=== PATIENT | male | born 1995 | race African-American/Black ===

== ENCOUNTER 2017-10-01 21:25 | Emergency (ER) | payer MEDICAID ==
[~2017-10-01] VITALS: Ht 182.9 cm; Wt 65.8 kg
[2017-10-01] MEDS ORDERED: NKM (21:52)
[2017-10-01] MEDS ORDERED: AUGMENTIN 875-1 EAC1 ORAL (22:32)
--- NOTE | 2017-10-01 22:33 | Emergency Room Report ---
History of Present Illness General Chief Complaint: Puncture Wound Source: Patient Present Illness [facility] This is a 22-year-old male with no cerumen past medical history. He presents with a puncture wound to his right foot. This occurred at work 4 days ago. He stepped on a palate that has a nail on it. It went through the sole of his shoe into his foot. He pulled it out. Since then his been doing fine except for the pain when he walk on it. No fever chills but no redness. Denies any other complaint. Allergies: Coded Allergies: No Known Allergies (Unverified , 10/01/17) Patient History Past Medical History: see triage record, old chart reviewed Past Surgical History: none Pertinent Family History: none Social History: Denies: smoking Immunizations: other Reviewed Nursing Documentation: PMH: Agreed; PSxH: Agreed Nursing Documentation-PMH Past Medical History: No Stated History Review of Systems Eye: Denies: eye pain, blurred vision ENT: Denies: ear pain, nose congestion, throat swelling Respiratory: Denies: cough, shortness of breath Cardiovascular: Denies: chest pain, palpitations Gastrointestinal: Denies: abdominal pain, diarrhea, nausea, vomiting Musculoskeletal: Reports: muscle pain; Denies: back pain, joint pain Skin: Denies: rash Neurological: Denies: headache, numbness Endocrine: Denies: increased thirst, increased urine Hematologic/Lymphatic: Denies: easy bruising All Other Systems: negative except mentioned in HPI Physical Exam Vital Signs Date Time Temp Pulse Resp B/P (MAP) Pulse Ox O2 Delivery O2 Flow Rate FiO2 10/01/17 21:47 98.3 76 16 98/57 98 Room Air 98.2 vitals normal Sp02 EP Interpretation: reviewed, normal General Appearance: well appearing, no apparent distress, alert Head: normocephalic, atraumatic Eyes: bilateral eye PERRL, bilateral eye EOMI ENT: hearing grossly normal, normal pharynx Neck: full range of motion, supple, no meningismus Respiratory: chest non-tender, lungs clear, normal breath sounds Cardiovascular #1: regular rate, rhythm, no murmur Gastrointestinal: normal bowel sounds, non tender, no mass, no organomegaly, no bruit, non-distended Musculoskeletal: back normal, gait/station normal, normal range of motion, other - Right foot: On the sole of foot over the ball, there is a small puncture wound. No redness. Mild tender to palpation. No palpable foreign body. Psychiatric: mood/affect normal Skin: warm/dry Medical Decision Making Diagnostic Impression: Primary Impression: Puncture wound ER Course Patient with a puncture wound to the foot. No evidence of foreign body. Is not look infected. We'll discharge home. Other X-Ray Diagnostic Results Other X-Ray Diagnostic Results : X-Ray ordered: right foot # of Views/Limited Vs Complete: 2 View Indication: Pain EP Interpretation: Yes Interpretation: no dislocation, no soft tissue swelling, no fractures Impression: No acute disease Electronically Signed by: Adria Peng MD Last Vital Signs Date Time Temp Pulse Resp B/P (MAP) Pulse Ox O2 Delivery O2 Flow Rate FiO2 10/01/17 21:47 98.3 76 16 98/57 98 Room Air 98.2 Status: improved Disposition: HOME, SELF-CARE Condition: Stable Scripts Amoxicillin/Potassium Clav 875-125* (AUGMENTIN 875-125 TABLET*) 1 Each Tablet 1 TAB ORAL TWICE A DAY, #10 TAB Prov: ADRIA PENG M.D. 10/01/17 Referrals: NON PHYSICIAN (PCP) Patient Instructions: Puncture Wound Additional Instructions: Keep wound clean. Follow-up with your Dr. in 7 days. Return if worse. ADRIA PENG M.D. Oct 01, 2017 22:33
[2017-10-01 22:38] VITALS: BP_SYST 101; BP_SYST 98; BP_DIAS 57; BP_DIAS 66
--- NOTE | 2017-10-02 10:26 | Diagnostic Imaging Report ---
Indication: Trauma, suspected foreign body Technique: 2 views of the right foot Comparison: none Findings: No radiopaque foreign body demonstrated. 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 No acute fractures. No dislocations. The joint spaces are preserved Impression: No acute process. No evidence of radiopaque foreign body
== END 2017-10-01 22:40 | disposition home or self-care (01) ==
LOC: EMR 22:21
DX: S91.331A Puncture wound without foreign body, right foot, initial encounter (principal); W22.8XXA Striking against or struck by other objects, initial encounter; Y92.9 Unspecified place or not applicable
CPT/HCPCS: 99283